=== PATIENT | female | born 1960 | race Caucasian/White ===

== ENCOUNTER 2018-07-27 10:35 | Emergency (ER) | payer BC ==
[2018-07-27 10:42] VITALS: TEMP 98.6; BMI 24.9
--- NOTE | 2018-07-27 10:54 | PDOC ---
Attending Attestation - Resident Resident Name: Cara Bella - ED Attending Attestation I have performed the following: I have examined & evaluated the patient, The case was reviewed & discussed with the resident, I agree w/resident's findings & plan, Exceptions are as noted - HPI HPI: 58 yo F presents with dizziness since this morning. She states she was having difficulty sleeping last night despite taking her regular xanax, then benadryl x2 when she kept waking up. She states that this morning she woke up with dizziness described as room spinning. She c/o fullness to the L ear, stating she usually follows up with ENT to have it cleaned every 6 months. No recent illness, trauma. She has a R occipital headache that is radiating to the frontal area. No N/V, weakness, numbness. - Physicial Exam PE: GENERAL: Awake, alert, and fully oriented, in no acute distress. Appears uncomfortable, avoiding movement of her head from side to side. HEAD: No signs of trauma EYES: PERRLA, EOMI, sclera anicteric, conjunctiva clear ENT: Auricles normal inspection, hearing grossly normal, nares patent, oropharynx clear without exudates. Moist mucosa. L TM partially obscured by cerumen, R TM normal in appearance. NECK: Normal ROM, supple, no lymphadenopathy, JVD, or masses LUNGS: Breath sounds equal, clear to auscultation bilaterally. No wheezes, and no crackles HEART: Regular rate and rhythm, normal S1 and S2, no murmurs, rubs or gallops ABDOMEN: Soft, nontender, normoactive bowel sounds. No guarding, no rebound. No masses EXTREMITIES: Normal range of motion, no edema. No clubbing or cyanosis. No cords, erythema, or tenderness NEUROLOGICAL: Cranial nerves II through XII grossly intact. Normal speech, normal gait. Motor and sensation intact. SKIN: Warm, Dry, normal turgor, no rashes or lesions noted. - Medical Decision Making Symptoms most likely due to BPPV. However, in light of headache and elevated BP , will obtain CTH to r/o ICH. She has had prior migraines, but not in recent years. If negative, will DC home.
[2018-07-27] MEDS ORDERED: MECLIZINE HCL 25 MG TABLET (FP) PO ONE (11:03)
--- NOTE | 2018-07-27 11:06 | PDOC ---
History of Present Illness - General Chief Complaint: Lightheaded Stated Complaint: DIZZINESS Time Seen by Provider: 07/27/18 10:38 History Source: Patient Exam Limitations: No Limitations - History of Present Illness Initial Comments: 07/27/18 11:05 Pt is a 58yo f with PMH of anxiety presenting to ED with complaints of dizziness that started 1 week ago. 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 Dizziness has been constant, associated with nausea. She denies headache, numbness, tingling, weakness, abominal pain, vomiting, urinary symptoms, tinnitus, hearing loss, changes in vision. She sees ENT for "ear fullness" and gets her ears cleaned out a few times a year, most recent visit was one month ago. PCP: Micki PMH: see hpi PSH: none Meds: Buproprion, alprazolam Allergies: nkda Past History - Past Medical History Allergies/Adverse Reactions: Allergies Allergy/AdvReac Type Severity Reaction Status Date / Time No Known Allergies Allergy Verified 07/27/18 10:36 Home Medications: Ambulatory Orders Acetaminophen/Diphenhydramine [Tylenol Pm Ex-Strength Caplet] 1 each PO ASDIR Alprazolam [Xanax] 0.5 mg PO HS PRN 07/27/18 Bupropion HCl [Wellbutrin Xl] 300 mg PO DAILY 07/27/18 Ibuprofen 600 mg PO Q6H #20 tablet 07/27/18 Meclizine HCl [Antivert -] 25 mg PO DAILY #7 tablet 07/27/18 COPD: No Psychiatric Problems: Yes (anxiety) - Suicide/Smoking/Psychosocial Hx Smoking History: Never smoked Have you smoked in the past 12 months: No Information on smoking cessation initiated: No Hx Alcohol Use: (occasional) Review of Systems - Review of Systems Constitutional: No: Chills, Fever, Weakness HEENTM: Yes: Recent change in vision (dizziness). No: Blurred Vision, Double Vision, Ear Pain, Tinnitus, Hearing Loss, Throat Pain Respiratory: No: Cough, Shortness of Breath Cardiac (ROS): No: Chest Pain, Lightheadedness, Palpitations, Syncope ABD/GI: Yes: Nausea. No: Constipated, Diarrhea, Vomiting, Abdominal cramping : No: Symptoms Reported Musculoskeletal: No: Back Pain, Joint Pain, Muscle Pain, Neck Pain Neurological: Yes: Headache. No: Numbness, Paresthesia, Tingling, Tremors, Weakness *Physical Exam - Vital Signs Last Vital Signs Temp Pulse Resp BP Pulse Ox 98.6 F 59 L 18 178/96 H 96 07/27/18 10:35 07/27/18 10:35 07/27/18 10:35 07/27/18 10:35 07/27/18 10:35 - Physical Exam General Appearance: Yes: Nourished, Appropriately Dressed. No: Apparent Distress HEENT: positive: EOMI (illicited dizziness), MARK, Pharynx Normal, Hearing Grossly Normal, Other (R TM could not be visualized due to cerumen. L TM clear, normal). negative: Pharyngeal Erythema, Nasal Congestion, Sinus Tenderness, TM Erythema Neck: positive: Trachea midline, Supple. negative: Carotid bruit, Lymphadenopathy (R), Lymphadenopathy (L) Respiratory/Chest: positive: Lungs Clear, Normal Breath Sounds. negative: Crackles, Rales, Rhonchi, Stridor, Wheezing Cardiovascular: positive: Regular Rhythm, Regular Rate, S1, S2. negative: Edema , JVD, Murmur Vascular Pulses: Carotid (R): 2+, Carotid (L): 2+, Dorsalis-Pedis (R): 2+, Doralis-Pedis (L): 2+ Gastrointestinal/Abdominal: positive: Normal Bowel Sounds, Soft. negative: Tender, Distended, Guarding, Rebound, Tenderness Musculoskeletal: negative: CVA Tenderness, Vertebral Tenderness Extremity: positive: Normal Capillary Refill. 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 negative: Facial Droop, Numbness, Sensory Deficit, Confused, Disoriented Medical Decision Making - Medical Decision Making 58yo f with PMH of anxiety presenting to ED with 1 week of sudden onset dizziness. Vitals: 178/96, HR 59, RR18, 98%RA PE: horizontal nystagmus and illicited dizziness with EOM. R TM normal, unable to visualize L TM due to wax buildup DDx: BPPV, labrinthitis, Meniere, posterior CVA, vertebral dissection. High suspicion for BPPV/labrinthitis due to pt having history of ear fullness, sudden onset dizziness worsened with eye movements. Will treat with meclizine, zofran and reevaluate. BP is elevated, considered posterior cva/dissection however pt does not have focal neurological deficits, no ataxia, no diadodyskinesia, normal finger-nose. 07/27/18 11:40 Pt reports resolution of dizziness but is now having a headache which feels like her previous migraines. Will give 1g Tylenol and reevaluate. 07/27/18 12:42 Pt still having HARVEY which is posterior and feels like her migraines, last migraine was years ago per pt. Will order CT head to r/o bleed. If negative, will give Toradol and reassess. 07/27/18 14:26 CT head negative. Will give Motrin. PT hemodynamically stable, has follow up. can be dc home. Pt agrees to plan. Given strict return precautions. Also given Rx meclizine and ibuprofen. *DC/Admit/Observation/Transfer Diagnosis at time of Disposition: Vertigo Headache Qualifiers: Headache type: unspecified Headache chronicity pattern: acute headache Intractability: not intractable Qualified Code(s): R51 - Headache - Discharge Dispostion Condition at time of disposition: Improved Decision to Admit order: No - Prescriptions Prescriptions: Ibuprofen 600 mg PO Q6H #20 tablet Meclizine HCl [Antivert -] 25 mg PO DAILY #7 tablet - Referrals - Patient Instructions Printed Discharge Instructions: DI for Vertigo, DI for Headache Additional Instructions: You were seen here today for evaluation of dizziness. It is most likely vertigo. I sent a medication to your pharmacy for meclizine, a mediation that helps with dizziness. Take as directed. You can take Motrin for your headaches as well. I recommend following up with your doctor regarding dizziness and headaches. Continue to see your ENT doctor as well. I recommend moving the appointment up for sooner evaluation. Come back to the emergency room if: dizziness gets worse, headaches get worse, you notice numbness/tingling or weakness, or if any new concerning symptom develops. Thank you - Post Discharge Activity
[2018-07-27] MEDS ORDERED: MECLIZINE HCL 25 MG TABLET (FP) ONE (11:07)
[2018-07-27] MEDS ORDERED: ONDANSETRON *ODT* 4 MG TABLET SL ONE (11:33)
[2018-07-27] MEDS ORDERED: ONDANSETRON *ODT* 4 MG TABLET ONE (11:36)
[2018-07-27] MEDS ORDERED: ACETAMINOPHEN 500 MG TABLET (FP) PO ONE (11:38)
[2018-07-27] MEDS ORDERED: ACETAMINOPHEN 325 MG TABLET (FP) ONE (11:39)
[2018-07-27] MEDS ORDERED: IBUPROFEN 600 MG TABLET (FP) PO ONE ×2 (13:54→14:08)
[2018-07-27 14:13] VITALS: BP 132/79; PULSE 68
--- NOTE | 2018-07-28 09:27 | EKG ---
Test Reason : Blood Pressure : / mmHG Vent. Rate : 059 BPM Atrial Rate : 059 BPM P-R Int : 124 ms QRS Dur : 086 ms QT Int : 450 ms P-R-T Axes : -01 023 026 degrees QTc Int : 445 ms SINUS BRADYCARDIA NONSPECIFIC ST AND T WAVE ABNORMALITY ABNORMAL ECG NO PREVIOUS ECGS AVAILABLE Confirmed by ISIDRA TALLEY MD ([id number]) on 07/28/2018 9:27:47 AM Referred By: CHAU MASSEY Confirmed By:ISIDRA TALLEY MD
== END 2018-07-27 14:15 | disposition home or self-care (01) ==
LOC: FER 10:35
DX: R42 Dizziness and giddiness (principal); R51 Headache
CPT/HCPCS: 70450-TC; 93005; 99283-25; Q0162